=== PATIENT | male | born 1960 | race Caucasian/White ===

== ENCOUNTER 2016-10-08 09:33 | Inpatient (IN) | payer OTHER ==
[~2016-10-08] VITALS: Ht 175.3 cm; Wt 74.8 kg
--- NOTE | ~2016-10-08 | OR ---
Unit #: [id number] #: [id number] Patient: YOSELIN ULLOA [id number] [address] [place], [place] [address] [id number] MR#: [id number] NAME: YOSELIN ULLOA ROOM: [facility] Date of Procedure: 10/08/2016 Admission Date: 10/08/2016 Surgeon: Eladio Yee M.D. : 1960 Attending Physician: Khalif Black M.D. Primary Care Physician: Fadi Martin M.D. OPERATIVE REPORT PREOPERATIVE DIAGNOSIS Acute appendicitis. POSTOPERATIVE DIAGNOSIS Perforated appendicitis. PROCEDURE PERFORMED Laparoscopic appendectomy for perforated appendicitis. ANESTHESIA General endotracheal. COMPLICATIONS None. ESTIMATED BLOOD LOSS Minimal. DESCRIPTION OF PROCEDURE After the patient was prepped and draped in usual fashion, 1 cm infraumbilical incision was made. A Veress needle was passed. The peritoneal cavity was insufflated in usual fashion. A 5-mm port was placed under direct vision. A lower midline 12-mm port the port and a right upper quadrant 5-mm port were placed. The cecum was identified, rotated medially. The appendix was identified. It was adhesed to the sidewall. The adhesions were broken down bluntly. There was evidence of perforation. There was fair amount of exudative fluid, which was seropurulent. The white line of Toldt was incised in order to rotate the cecum more fully into the anterior operating field. The mesentery was dissected at the base of the appendix and divided with vascular jasper. The appendix was then divided from the cecum using tissue jasper. The appendix was delivered through the lower midline trocar site with an Endopouch. The right lower quadrant was irrigated, suctioned free. There was no bleeding. A drain placed into the peritoneal cavity, down the right gutter and into the pelvis. It was brought out through the right upper quadrant 5-mm trocar site and secured to the skin with a silk ligature. The lower midline trocar was removed. There was no bleeding. The fascia was closed with the Endo Close device. The abdomen was desufflated. All wounds were infiltrated with 0.5% Marcaine with epinephrine. Skin was closed with clips. Dressings applied. The patient was taken to the recovery room in good condition. Unit #: [id number] #: [id number] Patient: YOSELIN ULLOA Dictated by... Jessy Gonzalez/sina TD: 10/09/2016 16:16 JOB #: [id number] OPERATIVE REPORT Page 1 of 1 X Eladio Yee X PROCEDURE OPERATIVE NOTE
--- NOTE | ~2016-10-08 | EKG ---
PATIENT: YOSELIN ULLOA UNIT #: [id number] Ventricular Rate: 77 BPM Atrial Rate: 77 BPM P-R Interval: 186 ms QRS Duration: 84 ms Q-T Interval: 372 ms QTC Calculation(Bezet): 420 ms P [place]: 61 degrees Calculated R [place]: 32 degrees Calculated T [place]: 31 degrees Diagnosis Line: Normal sinus rhythm Diagnosis Line: Septal infarct , age undetermined Diagnosis Line: Abnormal ECG Diagnosis Line: When compared with ECG of 29-OCT-2010 20:17, Diagnosis Line: Septal infarct is now Present Diagnosis Line: Confirmed by JADE NAVAS MD ([id number]) on Diagnosis Line: 10/10/2016 7:29:48 AM INTERPRETING MD: ELOISE ORTEGA
--- NOTE | ~2016-10-08 | HP ---
Unit #: [id number] #: [id number] Patient: YOSELIN ULLOA [id number] [address] [place], [place] [address] [id number] MR#: [id number] NAME: YOSELIN ULLOA. ROOM: 227 Age: 55 Sex: M Admission Date: 10/08/2016 : 1960 Attending Physician: Khalif Black M.D. Primary Care Physician: Fadi Martin M.D. HISTORY AND PHYSICAL PREOPERATIVE HISTORY AND PHYSICAL/SURGICAL CONSULTATION HISTORY OF PRESENT ILLNESS Mr. Ulloa is a 55-year-old gentleman with a history of hypertension who has had worsening abdominal pain today that has now localized to the right lower quadrant associated with nausea and anorexia. He denied fever, chills, or vomiting. On CT scan in the emergency room, he had acute appendicitis. PAST MEDICAL HISTORY 1. Hypertension. 2. Surgery to repair a laceration of the right upper extremity. 3. Hypercholesterolemia. 4. Tobacco abuse. 5. Alcohol abuse. 6. Obstructive sleep apnea. ALLERGIES Penicillin. MEDICATIONS 1. Aspirin 81 mg daily. 2. Metoprolol 100 mg daily. 3. Atorvastatin 10 mg daily. 4. Multivitamin. FAMILY HISTORY Diabetes, hypertension, atherosclerotic coronary artery disease, and tobacco abuse. SOCIAL HISTORY Long-term smoker and until recently said he was drinking a case of beer a day. Denies any recreational drugs. He is and works at a [employer] company. REVIEW OF SYSTEMS He does not use a CPAP, otherwise unremarkable. No previous problems with anesthesia. No history of alcohol withdrawal. PHYSICAL EXAMINATION VITAL SIGNS: Temperature is 98.4, pulse 74, respirations 18, and blood pressure is 138/89. GENERAL: He is awake, alert, oriented, and cooperative. HEENT: No scleral icterus. Unit #: [id number] #: [id number] Patient: YOSELIN ULLOA CARDIAC: Regular rhythm. LUNGS: Clear. ABDOMEN: He has localized rebound tenderness in the right lower quadrant, otherwise unremarkable. EXTREMITIES: No edema. NEUROLOGICALLY: Grossly intact. DIAGNOSTIC STUDIES LABORATORY: Comprehensive metabolic panel is unremarkable. Urinalysis negative for infection. Hemoglobin 12.2, white count 15,900, and platelets 302,000. IMAGING: CT scan shows acute appendicitis, diverticulosis of the sigmoid colon without evidence of diverticulitis. ASSESSMENT AND PLAN Acute appendicitis. I discussed laparoscopic appendectomy including risks, benefits, complications, and possibility of conversion to open procedure. The patient understands and agrees to proceed. Dictated by Jessy Serna TD: 10/08/2016 21:25 JOB #: [id number] HISTORY AND PHYSICAL Page 1 of 1 X Khalif Black MD X HISTORY AND PHYSICAL
--- NOTE | ~2016-10-08 | DS ---
Unit #: [id number] #: [id number] Patient: YOSELIN ULLOA [id number] [place] [id number] [facility]. [place], [place] [address] [id number] I MR#: [id number] NAME: YOSELIN ULLOA ROOM: 227 Age: 55 Sex: M Admission Date: 10/08/2016 : 1960 Discharge Date: 10/11/2016 Attending Physician: Khalif Black M.D. Primary Care Physician: Fadi Martin M.D. DISCHARGE SUMMARY HISTORY Mr. Ulloa is a 55-year-old gentleman who was transferred to [facility] from [facility] with a diagnosis of appendicitis. At the time of surgery, he was found to have perforated appendicitis but was able to undergo laparoscopic appendectomy with placement of a drain. He was admitted on IV antibiotics, and over the next 48 hours his drainage was nonpurulent and resolved. He was afebrile with stable vital signs. He regained bowel function and was able to tolerate a regular diet. His wounds are healing without complication. His drain was removed, and he will be discharged home today with instructions to undergo diet and activity as tolerated. He is to follow up in the office in 1-2 weeks. He may shower and use a laxative as needed. He will be discharged home on Levaquin and Flagyl and given hydrocodone for pain control. The patient is instructed not to drink any alcohol while taking the Flagyl. The patient understood these instructions and discharged home in stable condition. Dictated by... Jessy Serna/walter TD: 10/13/2016 07:47 JOB #: [id number] DISCHARGE SUMMARY Page 1 of 1 X Khalif Black MD X DISCHARGE SUMMARY
--- NOTE | ~2016-10-08 | CT4 ---
[facility] A Service of [facility] RADIOLOGY TEXT RESULTS PATIENT: YOSELIN ULLOA LOCATION: [place] [address]- : [birth year] UNIT #: [id number] AGE: [address]: Khalif Black MD SEX: M ORDER DR: [id number] [address] [address] [id number] MR#: [id number] Acc #: [id number] NAME: YOSELIN ULLOA. : 1960 SEX: M STUDY DATE/TIME: 10/08/2016 10:54 UNIT: SED ROOM: STUDY DESCRIPTION: CT Abd and Pelv Wo Cont Attending Physician: Shravan Colvin M.D. Ordering Physician: Shravan Colvin M.D. Primary Care Physician: Fadi Martin M.D. MEDICAL IMAGING REPORT This report is preliminary unless electronic signature is present. EXAM CT abdomen and pelvis without contrast, 10/08/2016 10:54 hours HISTORY 55-year-old man complaining of right lower quadrant for 2 days worsening this morning with nausea, dizziness and elevated white blood cell count today. COMPARISON None TECHNIQUE Helical noncontrasted images were obtained from the lung bases through the pubic symphysis. No oral or intravenous contrast was administered. Sagittal and coronal reconstructions were performed. Total exam DLP 890 mGy-cm. This CT exam was performed with one or more of the following radiation dose reduction techniques: automatic exposure control, adjustment of mA and/or kV according to patient size, and iterative reconstruction. FINDINGS Images through the lung bases are clear. There is no effusion or pneumothorax. The distal esophagus is normal. Images through the abdomen demonstrate a normal appearance to the liver, spleen, pancreas and bile ducts. The gallbladder is contracted and appears to contain at least sludge, possibly some tiny stones. There is no gallbladder wall thickening. The adrenal glands are normal. 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 There is no mass. The ureters are unremarkable. The bladder is normal. [facility] A Service of [facility] RADIOLOGY TEXT RESULTS PATIENT: YOSELIN ULLOA LOCATION: [facility] 227-01 : [birth year] UNIT #: [id number] AGE: [address]: Khalif Black MD SEX: M ORDER DR: The stomach is normal. Unopacified small bowel is unremarkable. The terminal ileum is normal. The appendix is abnormal. It contains multiple appendicoliths and is dilated with surrounding ground-glass change. There is no abscess, fluid collection or perforation. The colon is decompressed. There are multiple colonic diverticula in the descending colon and sigmoid colon. Most of these contain retained oral contrast material. No evidence of acute diverticulitis. CT pelvis is negative. IMPRESSION 1. The appendix is abnormal. There are multiple appendicoliths. The appendix is thickened with linear injection of the surrounding fat suggesting acute appendicitis without fluid collection, abscess or perforation. Surgical consultation recommended. 2. Diverticulosis of the descending colon and sigmoid colon without evidence of diverticulitis. Dictated by... Renetta Bynum M.D. THIS IS AN ELECTRONICALLY VERIFIED REPORT Renetta Bynum M.D. at 10/08/2016 9:02 PM Gaudencio TD: 10/08/2016 16:15 JOB #: [id number] MEDICAL IMAGING REPORT Page 1 of 1
[~2016-10-08 09:33] MED LIST: ASPIRIN325 M1 PO; ASPIRIN81 M2 PO; LISINOPRIL PO; TOPROL XL PO; ZOCOR20 MG PO
[2016-10-08 10:16] LABS: BASOPHIL# 0.1 X10e3 (0-0.3); BASOPHIL% 0.6 % (0-2.5); EOSINOPHIL# 0.2 X10e3 (0-0.7); EOSINOPHIL% 1.2 % (0.0-7.0); HEMATOCRIT 35.6 % (38.0-50.0); HEMOGLOBIN 12.2 gm/dL (13.0-16.0); LYMPHOCYTE# 1.4 X10e3 (1.0-3.5); LYMPHOCYTE% 8.7 % (17.0-45.0); MEAN CELL VOLUME 93.8 FL (83-96); MEAN CORPUSCULAR HEMOGLOBIN 32.1 PG (28-34); MEAN CORPUSCULAR HGB CONC 34.2 g/dL (30-36); MONOCYTE# 1.2 X10e3 (0-1.0); MONOCYTE% 7.4 % (3.0-12.0); NEUTROPHIL% 82.1 % (40-75); PLATELET COUNT 302 X10e3 (140-420); RED CELL DISTRIBUTION WIDTH 14.4 % (11.0-15.5); WHITE BLOOD COUNT 15.9 X10e3 (4.0-10.5)
[2016-10-08 10:28] LABS: DIFF IND NO
[2016-10-08 10:41] LABS: ALBUMIN SERUM 4.2 g/dL (3.5-5.0); BILIRUBIN, DIRECT 0.1 mg/dL (0.0-0.2); BILIRUBIN,INDIRECT 0.3 mg/dL (0.0-0.9); BILIRUBIN,TOTAL 0.4 mg/dL (0.2-2.0); BUN/CREATININE RATIO 8.57; CALCIUM SERUM 8.4 mg/dL (8.4-10.2); CREATININE SERUM 0.7 mg/dL (0.6-1.4); GLOM FILT RATE Estimated 106.3 mL/min (>60); POTASSIUM 3.9 mmol/L (3.5-5.1); PROTEIN TOTAL SERUM 7.2 g/dL (6.0-8.3)
[2016-10-08 11:04] LABS: URINE SOURCE CLEAN CATCH
[2016-10-08 11:07] LABS: URINE APPEARANCE CLEAR; URINE BILIRUBIN NEG (NEG); URINE BLOOD NEG (NEG); URINE COLOR YELLOW; URINE GLUCOSE NEG (NORM); URINE KETONE NEG (NEG); URINE LEUKOCYTE ESTERASE NEG (NEG); URINE NITRATE NEG (NEG); URINE PROTEIN NEG (NEG); URINE SPECIFIC GRAVITY 1.015 (1.003-1.035); URINE UROBILINOGEN 0.2 MG/DL (NORM)
[2016-10-08 11:08] LABS: MICRO INDICATED? NO
[2016-10-08] MEDS ORDERED: METOPROLOL TAR100 MG PO (11:42)
[2016-10-08] MEDS ORDERED: ATORVASTATIN CA10 MG PO (11:46)
[2016-10-08] MEDS ORDERED: MULTIVITAMINS1 EAC4 (11:47)
[2016-10-09 06:23] LABS: HEMOGLOBIN 11.2 gm/dL (13.0-16.0); MEAN CELL VOLUME 94.1 FL (83-96); RED BLOOD COUNT 3.61 X10e (3.90-5.60); RED CELL DISTRIBUTION WIDTH 14.3 % (11.0-15.5); WHITE BLOOD COUNT 17.6 X10e3 (4.0-10.5)
[2016-10-09 06:42] LABS: CALCIUM SERUM 8.6 mg/dL (8.4-10.2); CARBON DIOXIDE 23 mmol/L (22-31); CHLORIDE 102 mmol/L (100-111); CREATININE SERUM 0.8 mg/dL (0.6-1.4); GLOM FILT RATE Estimated 100.6 mL/min (>60); GLUCOSE FASTING 139 mg/dL (70-110); POTASSIUM 3.9 mmol/L (3.5-5.1); SODIUM 134 mmol/L (135-145)
[2016-10-09 06:43] LABS: BLOOD UREA NITROGEN <5 mg/dL (9-23); BUN/CREATININE RATIO 6.25
[2016-10-10 06:14] LABS: HEMATOCRIT 33.3 % (38.0-50.0); HEMOGLOBIN 10.8 gm/dL (13.0-16.0); MEAN CELL VOLUME 95.4 FL (83-96); MEAN CORPUSCULAR HEMOGLOBIN 31.1 PG (28-34); MEAN CORPUSCULAR HGB CONC 32.6 g/dL (30-36); MEAN PLATELET VOLUME 7.3 FL (6.5-11.5); RED BLOOD COUNT 3.49 X10e (3.90-5.60); RED CELL DISTRIBUTION WIDTH 14.7 % (11.0-15.5); WHITE BLOOD COUNT 11.3 X10e3 (4.0-10.5)
[2016-10-11 05:12] LABS: HEMATOCRIT 32.5 % (38.0-50.0); HEMOGLOBIN 10.7 gm/dL (13.0-16.0); MEAN CELL VOLUME 94.5 FL (83-96); MEAN CORPUSCULAR HEMOGLOBIN 31.2 PG (28-34); MEAN PLATELET VOLUME 6.4 FL (6.5-11.5); RED BLOOD COUNT 3.44 X10e (3.90-5.60); RED CELL DISTRIBUTION WIDTH 14.5 % (11.0-15.5); WHITE BLOOD COUNT 9.3 X10e3 (4.0-10.5)
[2016-10-11 06:46] LABS: CALCIUM SERUM 8.6 mg/dL (8.4-10.2); CARBON DIOXIDE 29 mmol/L (22-31); CHLORIDE 101 mmol/L (100-111); CREATININE SERUM 0.7 mg/dL (0.6-1.4); GLOM FILT RATE Estimated 106.3 mL/min (>60); GLUCOSE FASTING 102 mg/dL (70-110); POTASSIUM 3.8 mmol/L (3.5-5.1); SODIUM 135 mmol/L (135-145)
[2016-10-11 06:50] LABS: BLOOD UREA NITROGEN <5 mg/dL (9-23); BUN/CREATININE RATIO 7.14
[2016-10-11] MEDS ORDERED: LORTAB 7.5-3251 EACH PO (07:28)
[2016-10-11] MEDS ORDERED: LEVAQUIN PO (07:29)
[2016-10-11] MEDS ORDERED: FLAGYL PO (07:30)
== END 2016-10-11 09:27 | disposition home or self-care (01) | DRG 340 ==
LOC: SED 09:33 → CEDOF 17:38 → C2A 17:50 → CEDOF 18:16 → C2A 10-11 09:27
PROVIDERS: Emergency Medicine; Specialist; Surgery
PROC: 0DTJ4ZZ Resection of Appendix, Percutaneous Endoscopic Approach (ICD-10-PCS; principal; 2016-10-08 18:30)
DX: K35.2 Acute appendicitis with generalized peritonitis (principal); I10 Essential (primary) hypertension; Z88.0 Allergy status to penicillin; J44.9 Chronic obstructive pulmonary disease, unspecified; F17.210 Nicotine dependence, cigarettes, uncomplicated; R63.0 Anorexia; R11.0 Nausea; E78.00 Pure hypercholesterolemia, unspecified; F10.10 Alcohol abuse, uncomplicated; G47.33 Obstructive sleep apnea (adult) (pediatric); Z79.82 Long term (current) use of aspirin; Z83.3 Family history of diabetes mellitus; Z82.49 Family history of ischemic heart disease and other diseases of the circulatory system; Z81.2 Family history of tobacco abuse and dependence
CPT/HCPCS: 36415; 74176; 80048; 80076; 81003; 82150; 83690; 85025; 85027; 88304; 93005; 96361; 96374; 96375; 99285; J0330; J1170; J1335; J1956; J2175; J2185; J2250; J2405; J2543; J2710; J3010